=== PATIENT | male | born 1990 | race Caucasian/White ===

== ENCOUNTER 2017-05-26 20:05 | Emergency (ER) | payer OTHER ==
--- NOTE | 2017-05-26 20:22 | PDOC ---
History of Present Illness - General History Source: Patient Exam Limitations: No Limitations - History of Present Illness Initial Comments: 05/26/17 20:50 The patient is a 27 year old male with no pertinent past medical history who arrives to the ED for elevated creatine kinase level. As per patient, he has been undergoing multiple blood tests for elevated liver enzymes. He states that one month ago he had his physical where his blood work revealed elevated liver enzymes. He reports having his blood work checked multiple times since then, and that the most recent blood work for his GI physician noted an elevated CK of 13,000. The patient states he is asymptomatic and feels well. He reports just beginning to work out again after a year and has been drinking protein shakes daily. He denies any recent illness, fever, chills, nausea, vomiting, diarrhea, easy bleeding, melena, or hematemesis. He denies any chest pain, cough , or SOB. <Mary Grace Heck - Last Filed: 05/26/17 21:17> <Kem Weeks - Last Filed: 05/27/17 02:21> - General Chief Complaint: Chest Pain Stated Complaint: [place] [id number] Past History <Mary Grace Heck - Last Filed: 05/26/17 21:17> - Past Medical History COPD: No Psychiatric Problems: Yes (ANXIETY) - Suicide/Smoking/Psychosocial Hx Smoking History: Former smoker Have you smoked in the past 12 months: Yes If you are a former smoker, when did you quit?: MARCH 2017 Information on smoking cessation initiated: No <Kem Weeks - Last Filed: 05/27/17 02:21> - Past Medical History Allergies/Adverse Reactions: Allergies Allergy/AdvReac Type Severity Reaction Status Date / Time No Known Allergies Allergy Unverified 05/26/17 20:07 Home Medications: Ambulatory Orders NK [No Known Home Medication] 05/26/17 Review of Systems - Review of Systems Able to Perform ROS?: Yes Comments:: 05/26/17 20:59 GENERAL/CONSTITUTIONAL: No fever or chills. No weakness. HEAD, EYES, EARS, NOSE AND THROAT: No change in vision. No ear pain or discharge. No sore throat. CARDIOVASCULAR: No chest pain or shortness of breath. RESPIRATORY: No cough, wheezing, or hemoptysis. GASTROINTESTINAL: No nausea, vomiting, diarrhea or constipation. GENITOURINARY: No dysuria, frequency, or change in urination. MUSCULOSKELETAL: No joint or muscle swelling or pain. No neck or back pain. SKIN: No rash NEUROLOGIC: No headache, vertigo, loss of consciousness, or change in strength/ sensation. ENDOCRINE: No increased thirst. No abnormal weight change. HEMATOLOGIC/LYMPHATIC: No anemia, easy bleeding, or history of blood clots. ALLERGIC/IMMUNOLOGIC: No hives or skin allergy. All Other Systems: Reviewed and Negative <Mary Grace Heck - Last Filed: 05/26/17 21:17> *Physical Exam - Vital Signs Last Vital Signs Temp Pulse Resp BP Pulse Ox 98.5 F 78 16 124/80 99 05/26/17 20:08 05/26/17 20:08 05/26/17 20:08 05/26/17 20:08 05/26/17 20:08 - Physical Exam Comments: 05/26/17 21:00 GENERAL: Awake, alert, and fully oriented, in no acute distress HEAD: No signs of trauma EYES: PERRLA, EOMI, sclera anicteric, conjunctiva clear ENT: Auricles normal inspection, hearing grossly normal, nares patent, oropharynx clear without exudates. Moist mucosa NECK: Normal ROM, supple, no lymphadenopathy, JVD, or masses LUNGS: Breath sounds equal, clear to auscultation bilaterally. No wheezes, and no crackles HEART: Regular rate and rhythm, normal S1 and S2, no murmurs, rubs or gallops ABDOMEN: Soft, nontender, normoactive bowel sounds. No guarding, no rebound. No masses EXTREMITIES: Normal range of motion, no edema. No clubbing or cyanosis. No cords, erythema, or tenderness NEUROLOGICAL: Cranial nerves II through XII grossly intact. Normal speech, normal gait SKIN: Warm, Dry, normal turgor, no rashes or lesions noted. <Mary Grace Heck - Last Filed: 05/26/17 21:17> - Vital Signs Last Vital Signs Temp Pulse Resp BP Pulse Ox 98.5 F 78 16 124/80 99 05/26/17 20:08 05/26/17 20:08 05/26/17 20:08 05/26/17 20:08 05/26/17 20:08 <Kem Weeks - Last Filed: 05/27/17 02:21> Heart Score/ECG Review - ECG Intrepretation Comment:: 05/26/17 21:17 ECG at normal sinus at 85 bpm Normal axis, normal interval <UmangMary Grace - Last Filed: 05/26/17 21:17> ED Treatment Course - LABORATORY CBC & Chemistry Diagram: 05/26/17 20:42 05/26/17 20:42 - Medications Given in the ED: ED Medications Discontinued Medications Generic Name Dose Route Start Last Admin Trade Name Janes PRN Reason Stop Dose Admin Sodium Chloride 3,000 ml 05/26/17 20:23 05/26/17 20:43 Normal Saline - IV 05/26/17 20:24 3,000 ml ONCE ONE Administration <Mary Grace Heck - Last Filed: 05/26/17 21:17> - LABORATORY CBC & Chemistry Diagram: 05/26/17 20:42 05/26/17 20:42 <Kem Weeks - Last Filed: 05/27/17 02:21> Medical Decision Making - Medical Decision Making 05/27/17 02:21 rhabdo without renal impairment received 3L NS in ED <Kem Weeks - Last Filed: 05/27/17 02:21> *DC/Admit/Observation/Transfer - Attestations Scribe Attestion: 05/26/17 21:00 Documentation prepared by Mary Grace Heck, acting as quality engineer medical device for Kem Weeks MD. <Mary Grace Heck - Last Filed: 05/26/17 21:17> <Kem Weeks - Last Filed: 05/27/17 02:21> Diagnosis at time of Disposition: Rhabdomyolysis Qualifiers: Rhabdomyolysis type: non-traumatic Qualified Code(s): M62.82 - Rhabdomyolysis - Discharge Dispostion Disposition: HOME Condition at time of disposition: Stable - Referrals Referrals: Francisco Holt MD [Primary Care Provider] - - Patient Instructions Printed Discharge Instructions: DI for Rhabdomyolysis - Post Discharge Activity
[2017-05-26] MEDS ORDERED: SODIUM CHLORIDE 0.9% 1000 ML INFUS.BAG IV ONE (20:23)
[2017-05-26 20:32] VITALS: BP 124/80; PULSE 78; TEMP 98.5; BMI 26.9
[2017-05-26 20:52] LABS: EOS % 0.3 % (0-4.5); HEMATOCRIT 43.9 % (35.4-49); HEMOGLOBIN 14.6 GM/dl (11.7-16.9); LYMPH % 18.7 % (8-40); MCH 29.6 pg (25.7-33.7); MCHC 33.3 g/dl (32.0-35.9); MEAN CELL VOLUME 88.9 fl (80-96); MONO % 6.7 % (3.8-10.2); NEUT % 70.3 % (42.8-82.8); PLATELET COUNT 265 K/MM3 (134-434); RBC 4.94 M/mm3 (4.00-5.60); RDW 12.8 % (11.9-15.9); WHITE BLOOD COUNT 8.4 K/mm3 (4.0-10.8)
[2017-05-26 21:10] LABS: ALBUMIN 4.5 g/dl (3.5-5.0); ALK PHOS 87 U/L (32-92); ANION GAP 5 (8-16); BLOOD UREA NITROGEN 16 mg/dl (7-18); CALCIUM 9.1 mg/dl (8.4-10.2); CHLORIDE 107 mmol/L (98-107); CO2 25 mmol/L (22-28); CREATININE 0.8 mg/dl (0.6-1.3); GLUCOSE,RANDOM 88 mg/dl (74-106); POTASSIUM 3.9 mmol/L (3.5-5.1); SGPT/ALT 121 U/L (10-40); SODIUM 137 mmol/L (136-145); TOT PROT 6.9 g/dl (6.4-8.3)
[2017-05-26 21:36] LABS: SGOT/AST 400 U/L (10-42)
--- NOTE | 2017-06-01 14:36 | EKG ---
Test Reason : Blood Pressure : / mmHG Vent. Rate : 085 BPM Atrial Rate : 085 BPM P-R Int : 150 ms QRS Dur : 102 ms QT Int : 388 ms P-R-T Axes : 058 047 038 degrees QTc Int : 461 ms NORMAL SINUS RHYTHM NORMAL ECG NO PREVIOUS ECGS AVAILABLE Confirmed by CIARA STEPHENSON MD ([id number]) on 06/01/2017 2:36:00 PM Referred By: MD FOOTE Confirmed By:CIARA STEPHENSON MD
== END 2017-05-26 23:01 | disposition home or self-care (01) ==
LOC: FER 20:05
PROC: 3E0337Z Introduction of Electrolytic and Water Balance Substance into Peripheral Vein, Percutaneous Approach (ICD-10-PCS; principal; 2017-05-26)
DX: M62.82 Rhabdomyolysis (principal); F41.9 Anxiety disorder, unspecified; Z87.891 Personal history of nicotine dependence
CPT/HCPCS: 36415; 80053; 82550; 82553; 84484; 85025; 93005; 99283-25